=== PATIENT | male | born 1975 | race Caucasian/White ===

== ENCOUNTER 2023-02-08 05:37 | Observation (INO) ==
[2023-02-08] MEDS ORDERED: Lactated Ringers 1000 ml BAG 1,000 ML IV SCH ×2 (06:00→13:24)
[2023-02-08] MEDS ORDERED: Buffered Lidocaine 1% SYRIN 1 ml INTRADERM ONE (06:00)
[2023-02-08] MEDS ORDERED: Famotidine IV 10 MG/ML 2 ml VIAL (20 mg) IV ONE (06:00)
[2023-02-08] MEDS ORDERED: ceFAZolin 2 GM PREMIX 2 GM/50 ML BAG ONE (06:04)
[2023-02-08] MEDS ORDERED: Famotidine IV 10 MG/ML 2 ml VIAL (20 mg) ONE (06:04)
[2023-02-08] MEDS ORDERED: Dexamethasone IV 4 MG/ML VIAL 1 ml VIAL ONE (06:36)
[2023-02-08] MEDS ORDERED: Propofol 10 MG/ML 20 ML BTL ONE (06:36)
[2023-02-08] MEDS ORDERED: Midazolam 2 mg/2 ml VIAL 1 mg/ml 2 ml VIAL (2 mg) ONE (06:36)
[2023-02-08] MEDS ORDERED: Lidocaine 2% PF 5 ML VIAL ONE (06:36)
[2023-02-08] MEDS ORDERED: Rocuronium 50 mg VIAL 10 mg/ml 5 ml VIAL (50 mg) ONE ×2 (06:36→08:20)
[2023-02-08] MEDS ORDERED: Ondansetron 4 mg VIAL 2 MG/ML 2 ml VIAL ONE (06:36)
[2023-02-08] MEDS ORDERED: fentaNYL 100 mcg/2 ml 50 MCG/ML VIAL ONE ×3 (06:36→09:26)
[2023-02-08 06:45] LABS: Rapid COVID-19 Molecular Undetected (Undetected)
[2023-02-08] MEDS ORDERED: Bupivacaine 0.5% SDV PF 30ML VIAL ONE (07:22)
[2023-02-08] MEDS ORDERED: Lidocaine 1% w EPI 1:200,000 SDV 30 ML VIAL ONE (07:22)
[2023-02-08] MEDS ORDERED: Vancomycin 1,000 MG VIAL ONE (07:22)
[2023-02-08] MEDS ORDERED: HYDROmorphone 0.5 MG/0.5 ML SYRINGE ONE (07:40)
[2023-02-08] MEDS ORDERED: Sterile Water for Inj 10 ML ONE (07:56)
[2023-02-08] MEDS ORDERED: fentaNYL 100 mcg/2 ml 50 MCG/ML VIAL IV PRN (08:31)
[2023-02-08] MEDS ORDERED: Naloxone 0.4 mg VIAL 0.4 mg/ml 1 ml VIAL IV PRN (08:31)
[2023-02-08] MEDS ORDERED: Tranexamic Acid 1,000 MG/10 ML SDV ONE (08:52)
[2023-02-08] MEDS ORDERED: Morphine 2 MG/ML SYRINGE IV PRN (13:24)
[2023-02-08] MEDS ORDERED: Magnesium Hydroxide LIQ 30 ML UDC PO PRN (13:24)
[2023-02-08] MEDS ORDERED: Ondansetron 4 mg VIAL 2 MG/ML 2 ml VIAL IV PRN (13:24)
[2023-02-08] MEDS ORDERED: Lactulose 30 ml UDC PO PRN (13:24)
[2023-02-08] MEDS ORDERED: Ondansetron ODT 4 mg TAB 4 MG TAB PO PRN (13:24)
[2023-02-08] MEDS: ceFAZolin 1 GM ADVAN 1 GM in NS 0.9% 50 ML 50 ML IVPB SCH ×2 (16:16→23:53)
[2023-02-08] MEDS: Lactated Ringers 1000 ml BAG 1,000 ML IV SCH ×2 (17:50→23:54)
[2023-02-08] MEDS: Magnesium Hydroxide LIQ 30 ML UDC PO SCH (22:04)
[2023-02-09] MEDS: Lactated Ringers 1000 ml BAG 1,000 ML IV SCH (01:44)
[2023-02-09 06:28] LABS: Hemoglobin 12.5 g/dL (13.2-16.3); Platelet Count 271 10^3/uL (150-450)
[2023-02-09 06:42] LABS: Calcium 8.7 mg/dL (8.6-10.3); Creatinine, Serum 0.88 mg/dL (0.67-1.17); eGFR CKD-EPI 107.4 (>60)
[2023-02-09] MEDS: ceFAZolin 1 GM ADVAN 1 GM in NS 0.9% 50 ML 50 ML IVPB SCH (07:57)
[2023-02-09] MEDS ORDERED: Vitamin THERAPEUTIC TAB PO SCH (09:00)
[2023-02-09 10:26] VITALS: BP 145/79
[2023-02-09] MEDS: Magnesium Hydroxide LIQ 30 ML UDC PO SCH (11:07)
== END 2023-02-09 12:17 | disposition home or self-care (01) ==
LOC: SSU 05:37 → OR 05:37
PROVIDERS: ADMIT Orthopaedic Surgery; ATTEND Orthopaedic Surgery